=== PATIENT | female | born 1950 | race African-American/Black ===

== ENCOUNTER → 2021-04-27 | Emergency (ER) | payer OTHER ==
[~2021-04-27] VITALS: Ht 165.1 cm; Wt 52.2 kg
[~2021-04-27] MED LIST: NORCO 5-325 TA1 EACH PO
--- NOTE | ~2021-04-27 | EMS ---
[address] [address] EMS Patient Care Report Name: ROE AUGUSTE Room #: REG SALEEM Menard#: [id number] Admission: 04/27/21 Attend Phys: Discharge: Date of : 52 Report #: [id number] THIS REPORT FOR: //name// Report Transmitted: 04/30/2021 08:49 EMS Care Summary [place], [place]/[facility] Incident [id number] @ 04/27/2021 18:28 Incident Location [address] [place] [address] Patient ROE AUGUSTE Female, 70 Years 1950 Patient Address [address] [place] [address] Patient History Hypertension (HTN),Stroke/CVA,Gastro-Esophageal Reflux Disease (GERD), Patient Allergies No known allergies, Patient Medications Pantoprazole, Singulair, Folic acid, Carvedilol, Meloxicam, Acetaminophen, Chief Complaint right sided weakness Disposition Transported No Lights/[place] Dispatch Reason Falls Transported To [facility] Narrative M36 dispatched on a fall. M36 arrived to find PT seated on walker at top of stairs. PT stated right sided pain as chief complaint. Family stated PT fell out of bed yesterday morning and since has had right sided weakness and pain. PT assisted to stand and sit on stairchair. PT moved out of home using [address] [place] [address] EMS Patient Care Report Name: ROE AUGUSTE Room #: REG [facility]..#: [id number] Admission: 04/27/21 Attend Phys: Discharge: Date of : 52 Report #: [id number] stairchair. PT lifted from stairchair by EMS and placed on stretcher. PT secured with seatbelts and blankets. PT stated she did not want to go to the hospital yesterday. PT stated history of prior stroke. PT unsure of medications. Family provided partial medication list and phone number for hospital to contact them. PT vitals monitored during transport. PT report given. PT moved to hospital bed via three person sheet lift. PT care and belongings transferred to ER staff at [facility] without incident. M36 placed back in service. Initial Vitals @19:14P: 124,SpO2: 77, @18:59P: 56,SpO2: 58, @18:56P: 74,R: 18,BP: 161/83,Pain: 4/10,GCS: 15,SpO2: 76,Revised Trauma: 12, @19:07P: 164,R: 16,BP: 136/80,Pain: 4/10,GCS: 15,SpO2: 84,Revised Trauma: 12, @19:13P: 92,R: 20,BP: 136/74,Pain: 7/10,GCS: 15,SpO2: 86,Revised Trauma: 12, Assessments @18:45MENTAL:Place Oriented,Event Oriented,Person Oriented,Confused,SKIN:Pale,HEENT:Head/Face: Drainage,LUNG SOUNDS:ABDOMEN:PELVIS//GI:EXTREMITIES:Right Leg: Other,Right Leg: Weakness,Right Arm: Weakness,PULSE:Radial: 2+ Normal,NEURO:Abnormal Gait,Tremors,Weakness Right-Sided, Impression Generalized Weakness Procedures @18:45 ALS Assessment Response: UnchangedSucceeded @19:04 Oxygen FlowRate: 4 Device: Nasal Cannula (NC) Response: UnchangedSucceeded @19:01 3-Lead ECG Response: UnchangedSucceeded Timeline 18:24,Call Received 18:24,Dispatch Notified 18:28,Dispatched 18:28,En Route 18:41,On Scene 18:42,At Patient 18:45,ALS Assessment,Response: UnchangedSucceeded, 18:56,BP: 161/83 M,PULSE: 74,RR: 18 R,SPO2: 76 Ox,ETCO2: ,BG: ,PAIN: 4,GCS: 15, 18:59,BP: / M,PULSE: 56,RR: R,SPO2: 58 Ox,ETCO2: ,BG: ,PAIN: ,GCS: , 19:01,3-Lead ECG,Response: UnchangedSucceeded, 19:04,Oxygen FlowRate: 4 Device: Nasal Cannula (NC) Response: [facility] [address] [place] [address] EMS Patient Care Report Name: ROE AUGUSTE KALLIE Room #: REG SALEEM Menard#: [id number] Admission: 04/27/21 Attend Phys: Discharge: Date of : 52 Report #: [id number] UnchangedSucceeded, 19:05,Depart Scene 19:07,BP: 136/80 M,PULSE: 164,RR: 16 R,SPO2: 84 Ox,ETCO2: ,BG: ,PAIN: 4,GCS: 15, 19:13,BP: 136/74 M,PULSE: 92,RR: 20 R,SPO2: 86 Ox,ETCO2: ,BG: ,PAIN: 7,GCS: 15, 19:14,BP: / M,PULSE: 124,RR: R,SPO2: 77 Ox,ETCO2: ,BG: ,PAIN: ,GCS: , 19:28,At Destination 19:32,Call Closed Disclaimer v1.1 Copyright 2020 [employer] This EMS Care Summary contains data elements from the applicable legal record (which may be displayed differently). It is designed to provide pertinent information for the following purposes: continuity of care, clinical quality, and state data reporting. The complete legal record is available to ED staff and administrators of the receiving hospital in [employer] Patient Tracker. All data is provided "as is."
[2021-04-27 20:37] LABS: CALCIUM 10.1 mg/dL (8.5-10.1); POTASSIUM 4.9 mmol/L (3.5-5.1)
[2021-04-27 20:47] LABS: ALBUMIN 3.4 g/dL (3.4-5.0); TOTAL BILIRUBIN 0.5 mg/dL (0.2-1.0); TOTAL PROTEIN 8.1 g/dL (6.4-8.2)
[2021-04-27 21:15] LABS: ABSOLUTE NEUTROPHILS 2.4 thou/uL (1.4-8.2); BASOPHILS 0.6 % (0.0-2.0); EOSINOPHILS 0.4 % (0.0-3.0); HEMATOCRIT 37.2 % (37.0-47.0); HEMOGLOBIN 11.9 gm/dL (12.0-15.0); LYMPHOCYTES 24.1 % (24.0-44.0); MCH 27.6 pg (26.0-34.0); MCV 86.2 fL (80.0-100.0); MONOCYTES 14.3 % (1.0-8.0); PLATELET COUNT 232 thou/uL (150-400); POLYS 60.6 % (36.0-66.0); RBC 4.31 mil/uL (4.20-5.00); RDW 13.7 % (10.5-14.5); WBC 3.9 thou/uL (4.0-11.0)
[2021-04-27 22:09] LABS: URINE BILIRUBIN NEGATIVE (Negative); URINE BLOOD NEGATIVE (Negative); URINE CLARITY CLEAR; URINE COLOR YELLOW; URINE GLUCOSE-RANDOM* NEGATIVE (Negative); URINE KETONES NEGATIVE (Negative); URINE LEUKOCYTES-REFLEX NEGATIVE (Negative); URINE NITRITE-REFLEX NEGATIVE (Negative); URINE PROTEIN (DIPSTICK) TRACE (Negative); URINE SPECIFIC GRAVITY >= 1.030 (1.005-1.035); URINE UROBILINOGEN 0.2 E.U./dl (0.2-1.0)
[2021-04-28 05:18] VITALS: BP 153/81
--- NOTE | 2021-04-28 07:16 | EKG ---
[place] [address] [facility] [place] [address] ELECTROCARDIOGRAM REPORT Name: ROE AUGUSTE [id number] Admission: 04/27/21 Attend Phys: Discharge: Date of : 52 Report #: [id number] [facility] ED Test Date: 2021-04-27 Test Time: 20:13:06 Pat Name: ROE AUGUSTE Department: Room: Gender: F Road Design Engineer: sergio : 1950 Requested By: Lorrie Leon Order Number: [id number] MD: Braden Pennington Measurements Intervals [place] Rate: 73 P: 68 ND: 256 QRS: -10 QRSD: 93 T: 84 QT: 400 QTc: 441 Interpretive Statements Sinus rhythm Prolonged ND interval Consider left ventricular hypertrophy Inferior infarct, old ST elevation, consider anterior injury No previous ECG available for comparison Electronically Signed On 04-28-2021 7:16:35 [employer] by Braden Pennington [email or web address] <ELECTRONICALLY SIGNED> By: rBaden Pennington MD, [facility] 04/28/21 0716 12 12 Braden Pennington MD, FACC /EPI
== END ==
LOC: ER 19:23
PROVIDERS: Emergency Medicine
DX: S90.31XA Contusion of right foot, initial encounter (principal); R53.1 Weakness; I10 Essential (primary) hypertension; Z86.73 Personal history of transient ischemic attack (TIA), and cerebral infarction without residual deficits; Z79.899 Other long term (current) drug therapy; W06.XXXA Fall from bed, initial encounter; Y93.89 Activity, other specified; Y92.89 Other specified places as the place of occurrence of the external cause; Y99.8 Other external cause status

== ENCOUNTER 2021-07-07 14:32 | Inpatient (IN) | payer OTHER ==
[~2021-07-07] VITALS: Ht 165.1 cm; Wt 52.2 kg
[2021-07-07 14:36] VITALS: BP 141/88
[2021-07-07 15:17] LABS: MCV 76.6 fL (80.0-100.0); PLATELET COUNT 413 thou/uL (150-400); RBC 2.62 mil/uL (4.20-5.00); RDW 17.6 % (10.5-14.5); WBC 3.4 thou/uL (4.0-11.0)
[2021-07-07 15:32] LABS: CALCIUM 10.1 mg/dL (8.5-10.1); POTASSIUM 3.7 mmol/L (3.5-5.1)
[2021-07-07 15:56] LABS: ABSOLUTE NEUTROPHILS 2.3 thou/uL (1.4-8.2)
[2021-07-07 15:59] LABS: ANISOCYTOSIS 2+; HYPOCHROMASIA 3+
[2021-07-07 17:15] LABS: ALBUMIN 3.2 g/dL (3.4-5.0); DIRECT BILIRUBIN 0.1 mg/dL (<0.1-0.2); TOTAL BILIRUBIN 0.2 mg/dL (0.2-1.0)
[2021-07-07] MEDS ORDERED: FUROSEMIDE 20 M20 M1 PO (17:24)
[2021-07-07] MEDS ORDERED: NORVASC5 MG PO (17:24)
[2021-07-07] MEDS ORDERED: ATORVASTATIN CA80 MG PO (17:24)
[2021-07-07] MEDS ORDERED: POTASSIUM20 MEQ/15 (17:24)
[2021-07-07] MEDS ORDERED: XARELTO20 MG PO (17:24)
[2021-07-07] MEDS ORDERED: SINGULAIR 10 MG10 M1 PO (17:24)
[2021-07-07] MEDS ORDERED: CHLORTHALIDONE25 MG PO (17:24)
[2021-07-07] MEDS ORDERED: CELEXA 20 MG TA20 MG PO (17:24)
[2021-07-07] MEDS ORDERED: PROTONIX40 M2 PO (17:24)
[2021-07-07 17:28] VITALS: BP 139/78; BP 144/69
[2021-07-07 21:59] LABS: HEMATOCRIT 20.2 % (37.0-47.0)
[2021-07-07 22:03] LABS: HEMOGLOBIN 5.9 gm/dL (12.0-15.0)
[2021-07-08 01:23] VITALS: BP 123/73; BP 142/80
--- NOTE | 2021-07-08 01:57 | NUR ---
PT WAS ADMITTED TO THE UNIT FROM THE ER IN A STABLE CONDITION.BLOOD TRANSFUSION STARTED DOWN IN ER BEFORE PT WAS BROUGHT UP TO THE UNIT.BLOOD WAS FINALLY DONE AT 2014.BP 130/75, T 98.2, O2 SAT 100%,HR 96, R 18.H&H RECHECKED AN HOUR POST BLOOD TRANSFUSION.LAB CALLED WITH CRITICAL HGB OF 5.9.INT[employer] PARALEGAL ON DUTY NOTIFIED.ORDER NOTED TO TRANSFUSE ANOTHER 1 UNIT,ORDER CARRIED OUT.NO TRANSFUSION REACTION NOTED SO FAR.TWO NEW IV ITES WERE PUT IN BY ASSISTED LIVING HOME DIRECTOR DUE TO THE OTHER TWO SHE HAD WENT BAD.SWELLING AND BRUISING NOTED TO HER LFA.PT'S R ARM AND BLE CONTRACTED.PT CONT ON PROTONIX DRIP.TYLENOL GIVEN PAIN X1 PER PT'S REQUEST.PT NPO AT THIS TIME PER INTELLECTUAL PROPERTY PARALEGAL'S ORDER.CALL LIGHT WITHIN REACH
[2021-07-08 05:36] VITALS: BP 117/58
[2021-07-08 06:13] LABS: ABSOLUTE NEUTROPHILS 1.9 thou/uL (1.4-8.2); RDW 17.7 % (10.5-14.5); WBC 3.2 thou/uL (4.0-11.0)
[2021-07-08 06:14] LABS: BASOPHILS 1.5 % (0.0-2.0); EOSINOPHILS 0.3 % (0.0-3.0); LYMPHOCYTES 24.9 % (24.0-44.0); MCH 23.5 pg (26.0-34.0); MCHC 30.2 g/dL (28.0-37.0); MCV 77.8 fL (80.0-100.0); MONOCYTES 14.2 % (1.0-8.0); PLATELET COUNT 369 thou/uL (150-400); POLYS 59.1 % (36.0-66.0); RBC 2.55 mil/uL (4.20-5.00)
[2021-07-08 06:21] LABS: CALCIUM 9.7 mg/dL (8.5-10.1); CREATININE 0.9 mg/dL (0.6-1.0); MAGNESIUM 2.1 mg/dL (1.8-2.4); POTASSIUM 3.9 mmol/L (3.5-5.1)
[2021-07-08 06:25] LABS: HEMATOCRIT 19.8 % (37.0-47.0)
[2021-07-08 08:13] VITALS: BP 116/85
--- NOTE | 2021-07-08 10:06 | NUR ---
A/O X 2 SELF AND SITUATION, 1 L O2 VIA NASAL CANNULA, BEDBOUND, RIGHT AC PIV-COBANND, PAST SHIFT UPPER ARM PIV INFILTRATED-BLOODY DRESSING CHANGED-4X4 GAUZE AND TAPE, BRUISING RIGHT UPPER ARM, NS @ 75 INFUSING, RIGHT SIDE WEAKNESS, BILATERAL KNEE PAIN-TYLENOL GIVEN PRN. FROM [facility], HGB 6 AWAITING UNIT OF [facility] TO INFUSE.
[2021-07-08 12:15] VITALS: BP 123/76; BP 130/77
[2021-07-08 15:45] VITALS: BP 10/77
[2021-07-08 20:01] VITALS: BP 129/53
[2021-07-08 20:36] LABS: HEMATOCRIT 23.9 % (37.0-47.0); HEMOGLOBIN 7.6 gm/dL (12.0-15.0)
[2021-07-08 20:47] LABS: INR 1.1; PROTIME 11.9 Seconds (10.5-12.1)
[2021-07-08 20:53] LABS: % SATURATION 6 % (20-39); IRON 18 ug/dL (50-170); TIBC 285 ug/dL (250-450)
--- NOTE | 2021-07-09 04:59 | NUR ---
Pt. rested quietly at intervals during the night when checked on during frequent rounds. Incontinent of bladder and jenna care given. Bed alarm is on.
[2021-07-09 08:09] VITALS: BP 151/84
[2021-07-09 08:38] LABS: HEMATOCRIT 24.5 % (37.0-47.0); HEMOGLOBIN 7.6 gm/dL (12.0-15.0); MCHC 30.9 g/dL (28.0-37.0); MCV 77.6 fL (80.0-100.0); RBC 3.16 mil/uL (4.20-5.00); RDW 17.2 % (10.5-14.5); WBC 4.6 thou/uL (4.0-11.0)
[2021-07-09 17:14] VITALS: BP 131/75
--- NOTE | 2021-07-09 18:29 | NUR ---
ASSUMED CARE OF PT AT 0700. PT ORIENTED TO PERSON, PLACE, BUT NOT TIME. CONTRACTURES NOTED IN BOTH UPPER AND LOWER EXTREMETIES, WELL L SIDED WEAKNESS RESIDUAL FROM PAST CVA. LUNG SOUNDS CLEAR ON ROOM AIR, NASAL CANNULA NOT NECESSARY AT THIS TIME. PT O2 SATURATION MID-UPPER 90S ON ROOM AIR. PT IV PATENT. NORMAL SINUS NOTED ON TELEMETRY. CLEAR LIQUID DIET WITH LITTLE APPETITE, ENCOURAGEMENT NEEDED TO EAT. EGD PLANNED FOR 07/10 AM. INCONTINENT OF BOWEL AND BLADDER WITH 3 SMALL BOWEL MOVEMENTS TODAY-NON TARRY APPEARANCE. NO CONCERNS AT THIS TIME.
[2021-07-09 20:40] VITALS: BP 145/76
--- NOTE | 2021-07-10 01:19 | NUR ---
ASSUMED PT CARE AT 1900.PT DENIED PAIN SO FAR.SMALL DARK STOOL NOTED EARLIER THIS SHIFT.TX REPOSITIONS HERSELF IN BED NEEDED.PT CONT ON IVF.PT R ARM AND BLE CONTRACTED.PT RESTING ON HER BED AT THIS TIME.CALL LIHT WITHIN REACH.
[2021-07-10 12:14] LABS: HEMATOCRIT 25.3 % (37.0-47.0); HEMOGLOBIN 7.7 gm/dL (12.0-15.0); MCH 23.6 pg (26.0-34.0); MCHC 30.2 g/dL (28.0-37.0); MCV 78.2 fL (80.0-100.0); RBC 3.24 mil/uL (4.20-5.00); RDW 18.3 % (10.5-14.5); WBC 4.3 thou/uL (4.0-11.0)
[2021-07-10 12:26] LABS: CALCIUM 8.8 mg/dL (8.5-10.1); CREATININE 0.7 mg/dL (0.6-1.0)
[2021-07-10 12:30] LABS: POTASSIUM 2.9 mmol/L (3.5-5.1)
[2021-07-10 13:53] LABS: INR 1.1; PROTIME 11.9 Seconds (10.5-12.1)
--- NOTE | 2021-07-10 14:47 | NUR ---
Assess due to high nutrition screen risk. Pt admit from nursing facility with anemia, GIB. Hx cva, etoh use, covid, cirrhosis, iron deficiency anemia. Has been npo/cl liquids past 3 days and pending possible EGD today. ST consulted for swallow eval. Nutrition screen indicates 2-13 possible wt loss with poor intake. Limited information at this time, will follow up again in 1-2 days for timely diet advance, consistency, and intake.
--- NOTE | 2021-07-10 16:04 | NUR ---
Patient in bed and awake; NPO awaiting EGD to determine where bleed is. GI provided update; patient time moved down due to scheduling issues. Critical K+ called. Nursing notified provider. Patient is being repositioned q2hrs and as needed. Patient does not appear in distress. Fall precautions in place
[2021-07-10 16:44] VITALS: BP 132/63
--- NOTE | 2021-07-10 16:45 | NUR ---
patient arrived from gi lab at approx 1640. VSS. Reg diet, as tolerated resumed. patient voices no further needs
--- NOTE | 2021-07-10 17:44 | NUR ---
Patient admits with anemia. She is ltc at [facility]. Patient rec EGD today. Spoke and faxed clinical update to [facility]. Plan return once stable. Sp with dtr reviewed role of casemgt and plan return to [facility] when stable. Patient is ltc resident.
[2021-07-10 19:16] VITALS: BP 147/61
--- NOTE | 2021-07-10 21:50 | NUR ---
ASSUMED PT CARE AT 1900.PT DENIED PAIN SO FAR.PT HAD A SMALL BM.TERRY CARE DONE.PER REPORT,POTASSIUM LOW THIS AM ,STILL BEING REPLACED.PT RESTING ON HER BED AT THIS TIME.CALL LIGHT WITHIN REACH.
== END 2021-07-11 | DRG 378 ==
LOC: ER 14:32 → 4S 17:24 → EROBS 17:24 → 4S 19:36
PROVIDERS: Anesthesiology; Internal Medicine; Nurse Practitioner; Student in an Organized Health Care Education/Training Program; ADMIT Hospitalist; ATTEND Hospitalist
PROC: 30233N1 Transfusion of Nonautologous Red Blood Cells into Peripheral Vein, Percutaneous Approach (ICD-10-PCS; principal; 2021-07-07)
PROC: 0D568ZZ Destruction of Stomach, Via Natural or Artificial Opening Endoscopic (ICD-10-PCS; 2021-07-10)
DX: K55.21 Angiodysplasia of colon with hemorrhage (principal); D62 Acute posthemorrhagic anemia; I69.354 Hemiplegia and hemiparesis following cerebral infarction affecting left non-dominant side; G93.40 Encephalopathy, unspecified; Z20.822 Contact with and (suspected) exposure to COVID-19; I10 Essential (primary) hypertension; E78.5 Hyperlipidemia, unspecified; K74.60 Unspecified cirrhosis of liver; I73.9 Peripheral vascular disease, unspecified; F17.210 Nicotine dependence, cigarettes, uncomplicated; R13.10 Dysphagia, unspecified; Z66 Do not resuscitate; F10.10 Alcohol abuse, uncomplicated; I69.322 Dysarthria following cerebral infarction; Z86.16 Personal history of COVID-19; Z79.01 Long term (current) use of anticoagulants; Z86.711 Personal history of pulmonary embolism; I25.2 Old myocardial infarction; R53.81 Other malaise
CPT/HCPCS: 10100; 62110; 62900; 70005